=== PATIENT | female | born 1950 | race Caucasian/White ===

== ENCOUNTER 2020-09-20 07:37 | Day surgery (SDC) | payer MEDICARE, SELFPAY ==
--- NOTE | 2020-09-17 09:40 | EKG12_ITS ---
Test Reason : PRE OP Blood Pressure : / mmHG Vent. Rate : 057 BPM Atrial Rate : 057 BPM P-R Int : 134 ms QRS Dur : 082 ms QT Int : 438 ms P-R-T Axes : 052 -25 040 degrees QTc Int : 426 ms Sinus bradycardia Low voltage QRS Borderline ECG Confirmed by FER THIBODEAUX, JUAN ([id number]), writer editor JOSIAS TRIPP ([id number]) on 09/20/2020 2:32:23 PM Referred By: Amish Wallace Confirmed By:LOWELL MONROE MD
--- NOTE | 2020-09-19 22:23 | PCM.HP.BLA ---
History and Physical Date of Admission: 09/20/20 Surgical History and Physical Francine Mcclellan, a 69 year old female 1 0 0 0 1, presents for Vaginal Hysterectomy and AP Repair on September 20, 2020 at 10:30. -- UteroVaginal Prolapse -- Having problems with prolapsed bladder, very uncomfortable and tries to prevent bladder from leaking. 68 y.o. G 1 P 1 post-menopausal non-smoker and reports she is doing ok with the pessary, but by the end of the day, she is ready to take it out. Pressure and prolapse which began a few months ago. Francine claims it started gradually It occurs intermittantly. It is located in the vagina. Francine characterizes the quality pressure especially when on her feet or working outside. Severity is moderate and not improving; Additional comments are: began having prolapse after working in her garden; very bothersome to her. MEDICATIONS HISTORY: Current medications prescribed by our practice are: 1. estradiol 0.01% (0.1 mg/gram) vaginal cream, use 1 gm at hs for 1 wk Patient is also takin. atorvastatin 10 mg tablet, daily 2. famotidine 20 mg tablet, One pill by mouth once a day 3. prednisone 5 mg tablet, One pill by mouth once a day ALLERGIES: No Known Drug Allergies Infections - Chicken pox Illnesses - prediabetic Accidents - None Hospitalizations - Childbirth Review of Systems: GENERAL - Denies fever, or chills SKIN - Denies skin changes EYES - Denies visual changes EARS - Denies difficulty hearing NOSE - Denies nasal congestion or bleeding MOUTH - Denies sore throat or difficulty swallowing NECK - Denies pain or swelling RESPIRATORY - Denies shortness of breath or wheezing CARDIOVASCULAR - Denies palpitations or chest pain GASTROINTESTINAL - Denies nausea, vomiting, diarrhea, constipation GENITOURINARY - Denies dysuria, frequency of urination, incontinence of urine MUSCULOSKELETAL - Denies joint or muscle pain NEUROLOGICAL - Denies localized numbness or weakness PSYCHIATRIC - Denies depression or anxiety ENDOCRINE - Denies heat or cold intolerance, weight loss or gain HEMATO-IMMUNOLOGIC - Denies excesive bleeding with cuts SOCIAL HISTORY: Alcohol Use - denies drinking Smoking - denies smoking Diet - balanced Diet Lifestyle - Exercise - walking Seat Belt Use - occasional Employer - Retired Illicit Drug Use - denies use of street drugs Sexual Activity - Spouse-Sig Other Name - Petey Spouse-Sig Other Occupation - retired Children Name(s) - 1 child Control - postmenopausal FAMILY HISTORY: MENSTRUAL HISTORY: LMP Known?- Postmenopausal PAST PREGNANCIES: Total Pregnancies - 1; Full Term Pregnancies - 1; Premature - 0; Abortions, Induced - 0; Abortions, Spontaneous - 0; Ectopics - 0; Multiple Births - 0; Living Children - 1 PHYSICAL EXAM BP- 150/90 Sitting, Right arm, large cuff Temp- 98.1 Taken Orally Weight- 147.58227 lbs Height- 63.00 inch BMI:26.24 CONSTITUTIONAL - NAD, well nourished, and well developed SKIN - No rash, lesions, or ulcers HEENT - Normocephalic, PERRLA, EOMI NECK - No nodes, no nuchal rigidity and thyroid normal size and texture LYMPH NODES - Palpation of lymph nodes in neck and groins within normal limits LUNGS - CTA x2 without wheezes, crackles or rales CARDIAC - Regular rate and rhythm without rubs, murmurs, or gallops ABDOMEN - Without hepatosplenomegaly, distention, masses, rebound, or guarding; normal bowel sounds; no hernias EXTREMITIES - No edema or calf tenderness NEUROLOGICAL - Cranial nerves II-XII grossly intact PSYCHIATRIC - A and O to time, place, person, mood and affect DETAILED PELVIC EXAM External Genital Vagina - non-tender without lesions Urethra/Urethral Meatus - non-tender Bladder - non-tender Vagina - loss of rugae and cystocele 1-2 cm outside introitus with bearing down; rectocele to the introitus Cervix - without cervical motion tenderness and has normal size and features without evident lesions and cervix protrudes to within 1 cm of the introitus with bearing down Uterus - 5-6 cm in size, mobile and nontender Adnexa - clear without masses or tenderness ASSESSMENT/PLAN: 1. Cystocele Midline, Rectocele, Uterovaginal Prolapse and Incomplete Symptomatic. Pessary not well tolerated or liked. Plan Vag Hyst AP Repair or annual exam. Discussed RBAs and all questions answered.
[2020-09-20] VITALS (10 sets, daily range): BP systolic 140–159; BP diastolic 62–85; PULSE 54–77; RESP 14–18; TEMP 36.1–37.3; O2SAT 94–100; BMI 25.6
[2020-09-20 08:38] LABS: Prothrombin Time (Protime)PT. 12.4 SECONDS (11.7-14.9)
[2020-09-20 08:39] LABS: Partial Thromboplast Time 28.3 Seconds (24.1-36.2)
[2020-09-20] MEDS: Lactated Ringers 1,000 ML 100 ML IV (08:56)
--- NOTE | 2020-09-20 10:10 | HYST_PTH ---
PATIENT: WANG DANIELLE [place] [facility] [id number] AGE/SX: 69/F ROOM: RE09/20/[address]: Dr. Amish Wallace MD : 1950 BED: DIS: 09/21/2020 SPEC #: [id number] RECD: 09/20/20 13:29 STATUS: LISA GUS #: [id number] SUMIT: 09/20/20 10:[address]: Amish Wallace DEPT: SURGICAL PATHOLOGY RECD BY: Deneen Fierro ENTERED: 09/20/20 13:39 SP TYPE: HYSTERECT OTHR DR: Dr. Ge Castillo MD Tissues: Uterus, NOS Procedures: Surgery Specimen Level V HEADER OPERATION: Vaginal hysterectomy, A & P repair PRE-OP DIAGNOSIS: Cystocele midline, rectocele, uterovaginal prolapse TISSUE SUBMITTED: Uterus and cervix, anterior and posterior pieces MICROSCOPIC DIAGNOSIS Uterus, cervix and anterior and posterior pieces, vaginal hysterectomy and A & P repair: Cervix - benign endocervical polyp and mild chronic inflammation. Endometrium - simple cystic endometrial hyperplasia without atypia. - Benign emdometrial polyps. Myometrium - intramural leiomyomas with focal fatty changes (largest measuring 1.2 cm in greatest dimension). - Focal adenomyosis. Anterior and posterior pieces - fragments of benign squamous mucosa with reactive changes. SJ:ursula 09/21/20 MICROSCOPIC DESCRIPTION Slides are reviewed. GROSS DESCRIPTION Received in fixative is one container labeled with the patient's name and designated uterus, cervix and anterior and posterior pieces. The specimen consists of a hysterectomy specimen consisting of uterus with cervix and detached pieces of mucosal tissue. The uterus with cervix weighs 43 gm and measures 9?x 4 x 3 cm. The serosal surface is ragged. A polyp is noted in the endocervical canal measuring 1.5 x 0.2 x 0.1 cm. The endocervical canal underneath the polyp is not indurated. The external os is slit-like in contour. The endocervical canal measures 3 cm in length. The triangular endometrial cavity measures 4.5 cm in length and 3 cm in width. A polyp is noted measuring 1.5 x 0.5 x 0.2 cm. The myometrium underneath the polyp is not indurated. The endometrium is thickened and measures up to 0.5 cm in thickness. The thickened endometrium is noted predominantly in the anterior uterine wall. Sections of the uterine wall reveal one nodular mass measuring 1.2 cm in greatest dimension. Sections of this mass reveal nur whorled cut surfaces without areas of hemorrhage, necrosis or cystic degeneration. The uninvolved uterine wall measures up to 1 cm in thickness. Also present in the container are four variable sized pieces of mucosal tissue measuring in aggregate 4 x 2.5 x 0.5 cm. Instrumentation melgoza are noted. No mucosal lesion is identified. Extruding Machine Operator sections are submitted in 11 cassettes as follows: 1 - anterior cervix and junction of cervix with lower uterine segment, 2 - posterior cervix, endocervical polyp and junction of cervix and lower uterine segment, 3-7 - anterior uterine wall, (3 also contains endometrial polyp), 810??posterior uterine wall, entire endometrium is submitted, cassette 10 also contains the nodular mass, 11 - mucosal tissue. / OBEY:ursula 09/20/20 TC: 5 CPT: 74948
--- NOTE | 2020-09-20 11:25 | PCM.OPRPT ---
Report of Operation Date of Procedure: 09/20/20 Pre-Operative Diagnosis: Symptomatic UteroVaginal Prolapse Post-Operative Diagnosis: Symptomatic UteroVaginal Prolapse Surgery/Procedure Performed:: Vaginal Hysterectomy and Anterior Repair, Perineorrhaphy Description of Surgical Findings:: 6 cm uterus with normal-appearing fallopian tubes and ovaries. Cervix which protruded to within 2 cm of the introitus and cystocele which protruded to the introitus after the hysterectomy; mild rectocele with open perineum. dot compliance specialist: Fransisco Schmid Type of Anesthesia:: General - LMA Anesthesiologist: Valerie Martinez Specimen's removed: Uterus and vaginal mucosa Drains: Cummings to straight drain Estimated Blood Loss (mL): 100 cc Fluids Replaced: Crystalloid Description of Procedure: Surgeon: Amish Wallace MD, FACOG Indications: This is a 69-year-old patient who is been having problems with pressure and other utero vaginal prolapse symptoms. Conservative measures have not been helpful. Given this the patient desires that we proceed the above procedure. She has been counseled regarding the risk and indications of this procedure including the possibility of bleeding, infection, and injury to surrounding structures such as bowel bladder. All questions were answered. Procedure: Patient was taken to the operating room where after induction of general anesthesia she was placed in the dorsal lithotomy position and prepped and draped in the usual sterile fashion. A Cummings catheter was placed. Anterior cervix was grasped with a tenaculum and anterior cervix circumscribed with cautery on a setting of 35 W coagulation. Anterior peritoneum was entered after taking 2 bites adjacent to the cervix. The posterior aspect of the cervix was circumscribed with a knife and posterior peritoneum entered. Progressive bites were taken on either side of the uterine cervix and each pedicle ligated with 0 Vicryl suture. Superior pedicles were ligated ?2 with 0 Vicryl suture and sidewall pedicles were examined and oversewn where necessary with [id number] 0 Vicryl suture to achieve hemostasis. Posterior vaginal cuff was oversewn with running locked 0 Vicryl suture. Hemostasis was noted and peritoneum was closed in a pursestring fashion incorporating superior pedicles into the stitch. Hemostasis was noted. Attention was turned toward the anterior repair portion of the procedure. Anterior vaginal mucosa was undermined and divided and then imbricated toward the midline with interrupted 0 Vicryl sutures. Vaginal mucosa was trimmed and then closed with interrupted 2-0 chromic suture. Vaginal cuff was then closed side to side with interrupted [id number] 0 Vicryl suture. Hemostasis was noted. Attention was turned toward the posterior repair portion of the procedure. Remnants of the hymenal ring were grasped with Allises and a V-shaped incision was made in the perineum. Given the small extent of the rectocele the rectovaginal mucosa was not undermined or divided. Remnants of the bulbocavernosus muscles were identified and brought toward the midline with a single [id number] 0 Vicryl suture and perineum was closed in the usual fashion with running and subcuticular, and [id number] 2-0 chromic suture. Hemostasis was noted. Cummings catheter was again opened and clear yellow urine was noted. Vagina was packed with iodoform tape. Patient tolerated the procedure well was taken to recovery room in satisfactory condition; sponge instrument and needle counts were all reportedly correct. Estimated blood loss for the case was 100 cc. Cefotan 2 g IV was given prior to beginning the operative procedure. There were no apparent complications of the surgery. Specimen to pathology was uterus and vaginal mucosa. Grafts/Implants Used: None - Complications None - Admit VTE Documentation VTE Present on Admission: Yes VTE Mechan Device Prophylaxis: [facility]TE Pharm Prophylaxis ordered?: Yes
--- NOTE | 2020-09-20 11:32 | DCINST_ITS ---
Discharge Diet: No Restrictions Discharge Activity: Return to Normal Activity, May Not Drive - while taking narcotic pain medications., May Shower, May Take a Tub Bath May resume sexual activity in: 6-8 weeks Call your doctor if your incision/area has: Continuous Slow Oozing, Sudden Inc reased Bleeding, Increased Pain/ Swelling, Increased Redness, Foul Smelling Discharge Call your doctor if you observe: Fever of 101 or Higher, Inability to urinate, Inability to have a bowel movement, Using more than one pad per hour Allergies/Adverse Reactions: Allergies No Known Allergies Allergy (Verified 09/17/20 14:28) Medications to take at Discharge Atorvastatin Calcium [Lipitor] 10 mg PO QHS 09/17/20 Biotin 5,000 mcg PO DAILY 09/17/20 Cholecalciferol (VIT D3) [Vitamin D] 1,000 unit PO DAILY 09/17/20 Famotidine [Pepcid] 40 mg PO QHS 09/17/20 Levothyroxine Sodium 88 mcg PO QODAY 09/17/20 Multivitamin with Minerals [Multiple Vitamin] 1 ea PO DAILY 09/17/20 Docusate Sodium [Colace] 100 mg PO BID PRN PRN #60 cap 09/20/20 Oxycodone [Oxyir] 5 mg PO Q6H PRN PRN 7 Days #10 tablet 09/20/20 The following prescriptions were given: Docusate Sodium [Colace] 100 mg PO BID PRN PRN #60 cap PRN Reason: Constipation Transmission Status: Pending to [facility] Oxycodone [Oxyir] 5 mg PO Q6H PRN PRN 7 Days #10 tablet PRN Reason: Pain Score 6-10 Transmission Status: Sent to [facility] Primary Care Physician: Ge Castillo MD [Primary Care Provider] - Test Results: Test results from this visit will be discussed in further detail at your follow- up appointment, if applicable. Please Follow Up With: Amish Wallaec MD When: 2-3 weeks
[2020-09-20] MEDS: Dextrose 5%-Lactated Ringers 1,000 ML 125 ML IV (13:56)
[2020-09-20] MEDS: 0.9% Saline Lock 10 ML Syringe IV ×2 (14:34→17:45)
[2020-09-20] MEDS: HYDROmorphone 0.5 MG/0.5 ML SYRINGE IV (14:34)
[2020-09-20] MEDS: Enoxaparin 30 MG/0.3 ML Syringe SC (17:44)
[2020-09-20] MEDS: Ketorolac 15 MG/ML Vial IV (17:44)
[2020-09-20] MEDS: Atorvastatin Calcium 10 MG Tablet PO (21:25)
[2020-09-20] MEDS: Famotidine 20 MG Tablet 40 MG PO (21:25)
[2020-09-21] MEDS: Ketorolac 15 MG/ML Vial IV ×2 (00:14→06:02)
[2020-09-21 03:50] VITALS: BP 109/43; PULSE 65; RESP 16; TEMP 37.2; O2SAT 95
[2020-09-21] MEDS: Levothyroxine 88 MCG Tablet PO (06:02)
--- NOTE | 2020-09-21 06:45 | PCM.PN.OB ---
Subjective: Patient without complaints. Tolerating diet well. Denies flatus. Objective: Vaginal pack out with minimal vaginal bleeding noted. Good urine output. Hemoglobin pending. - Physical Exam Vitals/I&O's: Vital Signs Temp Pulse Resp BP Pulse Ox 99.0 F 65 16 109/43 L 95 09/21/20 03:50 09/21/20 03:50 09/21/20 03:50 09/21/20 03:50 09/21/20 03:50 Oxygen Flow Rate (L/min) 2 Oxygen Delivery Method Room Air Weight: 147 lb 0.773 oz Body Mass Index (BMI) 25.6 Intake and Output for Last 24 Hours 09/19/20 09/20/20 09/21/20 23:59 23:59 23:59 Intake Total 1270 / 2870 3000 / 3000 Output Total 680 / 2555 2775 / 2775 Balance 590 / 315 225 / 225 Laboratory Results 09/20/20 08:20: PT 12.4, INR 1.0, APTT 28.3 09/20/20 08:20: Blood Type A POSITIVE, Antibody Screen NEGATIVE Current Medications Acetaminophen (Acetaminophen 500 Mg Tablet) 1,000 mg PO Q8H PRN PRN PRN Reason: Pain Score 1-3/10 or Fever Atorvastatin Calcium (Atorvastatin Calcium 10 Mg Tablet) 10 mg PO QHS [facility] Last Admin: 09/20/20 21:25 Dose: 10 mg Documented by: Docusate Sodium (Docusate Sodium 100 Mg Capsule) 100 mg PO BID PRN PRN PRN Reason: Constipation Famotidine (Famotidine 20 Mg Tablet) 40 mg PO QHS [facility] Last Admin: 09/20/20 21:25 Dose: 40 mg Documented by: Hydromorphone HCl (Hydromorphone 0.5 Mg/0.5 Ml Syringe) 0.5 mg IV Q3H PRN PRN PRN Reason: Pain Score 4-10 Last Admin: 09/20/20 14:34 Dose: 0.5 mg Documented by: Dextrose/Lactated Ringer's () 1,000 mls @ 125 mls/hr IV .Q8H [facility] Last Admin: 09/21/20 06:00 Dose: Not Given Documented by: Sodium Chloride () 250 mls @ 15 mls/hr IV .[id number] PRN PRN Reason: Saline Flush Sodium Chloride () 250 mls @ 15 mls/hr IV .[id number] PRN PRN Reason: Additional IVPB Infusion Ketorolac Tromethamine (Ketorolac 15 Mg/Ml Vial) 15 mg IV Q6H [facility] Stop: 09/25/20 18:01 Last Admin: 09/21/20 06:02 Dose: 15 mg Documented by: Levothyroxine Sodium (Levothyroxine 88 Mcg Tablet) 88 mcg PO QODAY@0600 [facility] Last Admin: 09/21/20 06:02 Dose: 88 mcg Documented by: Ondansetron HCl (Ondansetron 4 Mg/2 Ml Vial) 4 mg IV Q4H PRN PRN PRN Reason: NAUSEA Oxycodone HCl (Oxycodone 5 Mg Tablet) 5 mg PO Q4H PRN PRN PRN Reason: Pain Score 4-10 Simethicone (Simethicone 80 Mg Tablet) 80 mg PO [facility] Last Admin: 09/20/20 21:24 Dose: 80 mg Documented by: Sodium Chloride (0.9% Saline Lock 10 Ml Syringe) 10 - 40 ml IV UD PRN PRN Reason: SALINE FLUSH Last Admin: 09/20/20 17:45 Dose: 10 ml Documented by: Sodium Chloride (0.9% Saline Lock 10 Ml Syringe) 10 - 40 ml IV UD PRN PRN Reason: SALINE FLUSH Medical Necessity - Tobacco Use Smoking Status: Never smoker Tobacco Use: Non-smoker Assessment/Plan Doing well postoperative day #1 status post vaginal hysterectomy and anterior posterior repair. Will release to home with routine instructions when able to void on own.
[2020-09-21 07:18] LABS: Hematocrit 39.9 % (37-47); Hemoglobin 12.6 g/dL (12.0-15.0); Mean Corp Hgb Conc 31.6 g/dL (32-36); Mean Corpuscular Hgb 27.7 pg (27.0-32.0); Mean Corpuscular Volume 87.7 fL (81-99); Mean Platelet Vol. 10.3 fl (6.2-12.0); Platelet Count 271 K/mm3 (150-450); RBC Distribution Width CV 12.9 % (11.6-14.6); RBC Distribution Width SD 41.6 fl (35.1-43.9); Red Blood Count 4.55 M/mm3 (4.2-5.4); White Blood Count 11.4 K/mm3 (4.4-11.0)
[2020-09-21 07:39] VITALS: O2SAT 95
[2020-09-21 07:47] LABS: EST Glomerular Filtration Rate 75 mL/min (>60); Est Glom Filt Rate - Afr Amer 91 mL/min (>60)
[2020-09-21 08:38] VITALS: BP 111/46; PULSE 53; RESP 14; TEMP 36.8; O2SAT 96
== END 2020-09-21 10:34 | disposition home or self-care (01) ==
LOC: SDC 07:40 → AC 07:40 → MS3 12:39
PROVIDERS: PCP Family Medicine; Referring Provider Obstetrics & Gynecology; Visit Provider Obstetrics & Gynecology
PROC: (CPT 58260; principal; 2020-09-20 09:50)
DX: N81.2 Incomplete uterovaginal prolapse (principal); D25.1 Intramural leiomyoma of uterus; N80.0 Endometriosis of uterus; N84.1 Polyp of cervix uteri; E78.00 Pure hypercholesterolemia, unspecified; R73.03 Prediabetes; K21.9 Gastro-esophageal reflux disease without esophagitis; F41.9 Anxiety disorder, unspecified; Z79.899 Other long term (current) drug therapy; Z78.0 Asymptomatic menopausal state
CPT/HCPCS: 00944; 57260; 58260; 82565; 85027; 85610; 85730; 86850; 86900; 86901; 87426; 88307; 93005; 99251; C9803; J7120; A4216; G0463; J2405